=== PATIENT | male | born 1975 | race Caucasian/White ===

== ENCOUNTER 2022-08-24 00:13 | Emergency (ER) | payer OTHER ==
[2022-08-24 00:30] VITALS: BP 120/77; PULSE 96; RESP 16; TEMP 98.7; BMI 29.0
== END 2022-08-24 01:03 | disposition home or self-care (01) ==
LOC: FER 00:13
DX: R07.0 Pain in throat (principal); J02.9 Acute pharyngitis, unspecified
CPT/HCPCS: 87651; 99283-25